=== PATIENT | male | born 1980 | race Hispanic/Latino ===

== ENCOUNTER 2020-04-27 14:33 | Emergency (ER) | payer OTHER ==
[2020-04-27 15:05] VITALS: BP 123/69
--- NOTE | 2020-04-27 15:50 | Emergency Department Report ---
ED Rash HPI - HPI Chief Complaint: Skin/Abscess/Foreign Body Stated Complaint: RT HAND CANT STOP BLEEDING Time Seen by Provider: 04/27/20 15:38 Duration: maria isabel ago Location: Other (volar right hand) Rash Symptoms: Yes Blistering Other History: 39-year-old male presents to the ER today complaining of a small area to the volar aspect of his right hand which has been bleeding intermittently for a few days. Patient states that he noticed that he had a small bump to the volar aspect of his right hand few weeks ago.. He states that he tried to squeeze it to see if anything came out, but nothing did. He states that a couple days after he noticed that the area turned into a blood-filled blister. He states that he noticed that it was not healing. He states that a few days ago area started to bleed intermittently especially when he would accidentally hit it on something. He states that he did manipulated again a couple days ago using a tweezer. He states that the bleeding got worse yesterday to the point that it soaked through the dressing. He went to urgent care today and they did a silver nitrate cauterization and applied a dressing but recommend that he come to the ER for further evaluation. He denies any associated pain and he is not on any blood thinners. ED Review of Systems ROS: Stated complaint: RT HAND CANT STOP BLEEDING Other details as noted in HPI Comment: All other systems reviewed and negative Skin: lesions Hematological/Lymphatic: easy bleeding ED Past Medical Hx - Past Medical History Previous Medical History?: No - Surgical History Past Surgical History?: No - Social History Smoking Status: Never Smoker Rash Exam - Exam General: Vital signs noted. No distress. Alert and acting appropriately. No respiratory distress. Heart rate normal. Neurologically intact. Skin: No Other (Pressure dressing noted to the right hand which was removed by me. Patient has a very small flesh-colored lesion to the volar aspect of his right hand over the thenar eminence. Area is not tender to palpation. No associated infection noted. No active bleeding at the time of exam.) ED Course Vital Signs 04/27/20 15:01 Temperature 122.0 F H Pulse Rate 62 Respiratory 18 Rate Blood Pressure 123/69 O2 Sat by Pulse 97 Oximetry ED Medical Decision Making - Medical Decision Making Very small flesh-colored lesion/wound over the thenar eminence of right hand. No active bleeding at time of exam. No evidence of secondary bacterial infection. Patient had a silver nitrate cauterization done at urgent care prior to coming to the ER. This was reinforced by applying quick clot and a pressure dressing. Is not any blood thinners. He is well-appearing, not toxic and does not appear to be in any acute distress. All signs are stable. No work-up indicated at this time. Wound care discussed with patient. He expresses understanding of instructions and agree with plan. Critical care attestation.: If time is entered above; I have spent that time in minutes in the direct care of this critically ill patient, excluding procedure time. ED Disposition Clinical Impression: Bleeding from wound Disposition: DC-01 TO HOME OR SELFCARE Is pt being admited?: No Does the pt Need Aspirin: No Condition: Stable Instructions: Wound Care, Adult Additional Instructions: Leave pressure dressing on for about 2 days. You can remove it after 2 days. I recommend normal manipulation of the area. Keep area clean daily with soap and water do not use peroxide or alcohol you can also apply a small amount of Neosporin over the wound to help prevent infection. Follow-up with your primary care doctor. If your symptoms changes or worsens return immediately to the ER. Referrals: PEÑA BLEVINS MD [Staff Physician] - 3-5 Days Time of Disposition: 15:56
== END 2020-04-27 16:38 | disposition home or self-care (01) ==
LOC: ED 14:33
DX: S61.401A Unspecified open wound of right hand, initial encounter (principal); X58.XXXA Exposure to other specified factors, initial encounter; Y93.89 Activity, other specified; Y92.89 Other specified places as the place of occurrence of the external cause; Y99.8 Other external cause status
CPT/HCPCS: 99282